=== PATIENT | female | born 1995 | race Caucasian/White ===

== ENCOUNTER 2017-02-20 21:20 | Emergency (ER) | payer MEDICAID, OTHER ==
[~2017-02-20] VITALS: Ht 162.6 cm; Wt 65.0 kg
[2017-02-20] MEDS ORDERED: FLUORESCEIN OPHTHALMIC 1 MG STRIP ONE (21:40)
[2017-02-20] MEDS ORDERED: PROPARACAINE OPHTH 0.5%, 15ML ONE (21:41)
[2017-02-20] MEDS ORDERED: HYDROcodone/APAP 5/325 TABLET PO ONE (22:00)
[2017-02-20] MEDS ORDERED: HYDROcodone/APAP 5/325 TABLET ONE (22:53)
[2017-02-20 23:00] VITALS: BP 133/87
== END 2017-02-20 23:03 | disposition home or self-care (01) ==
LOC: ED 22:45
DX: S05.02XA Injury of conjunctiva and corneal abrasion without foreign body, left eye, initial encounter (principal); S05.01XA Injury of conjunctiva and corneal abrasion without foreign body, right eye, initial encounter; W45.8XXA Other foreign body or object entering through skin, initial encounter; Y93.89 Activity, other specified; Y92.89 Other specified places as the place of occurrence of the external cause; Y99.8 Other external cause status
CPT/HCPCS: 99283